=== PATIENT | female | born 1990 | race Caucasian/White ===

== ENCOUNTER 2022-03-20 05:20 | Inpatient (IN) ==
--- NOTE | 2022-03-16 10:40 | Anesthesiology Consultation ---
Date of Service March 16, 2022 Assessment & Plan Chart Review Chart Review: Acceptable Risk for Surgery and Patient NOT seen in Pre Admission Testing History Surgery Operation Date: 03/20/22 07:30 Proposed Procedures p Section in LD (Delivery of Baby Throught Abdominal Incision) - Tsering Matt MD, FACOG s Bilateral Tubal Ligation Labor & Deliv - Tsering Matt MD, FACOG Height/Weight Height: 5 ft 5 in Weight: 108.862 kg Allergies Allergy/AdvReac Type Severity Reaction Status Date / Time No Known Allergies Allergy Verified 03/16/22 09:55 Medications Home Medications Medication Instructions Recorded Confirmed Last Taken sertraline 50 mg tablet 50 mg PO QAM 10/08/21 03/16/22 02/02/22 08:00 acetone (urine) test (Ketone Urine #50 ea 11/06/21 03/16/22 Unknown Test strips) blood sugar diagnostic (OneTouch #150 ea 11/06/21 03/16/22 Unknown Verio test strips) blood-glucose meter (OneTouch #1 ea 11/06/21 03/16/22 Unknown Verio Flex Meter) lancets 33 gauge (OneTouch Delica #150 ea 11/06/21 03/16/22 Unknown Lancets) cetirizine 10 mg tablet (Zyrtec) 10 mg PO QAM 02/03/22 03/16/22 02/02/22 08:00 prenat.vits,rossana,avb-jayp-qswpx 1 tab PO QAM 02/03/22 03/16/22 02/02/22 08:00 albuterol 90 mcg/actuation aerosol 2 mcg inhalation UD PRN Wheezing 03/16/22 03/16/22 Unknown inhaler azithromycin 250 mg tablet 250 mg PO UD 03/16/22 03/16/22 Unknown (Zithromax Z-Davon) budesonide-formoterol HFA 160 2 puff inhalation QAM 03/16/22 03/16/22 Unknown mcg-4.5 mcg/actuation aerosol inhaler (Symbicort) famotidine 20 mg tablet (Pepcid) 20 mg PO QAM 03/16/22 03/16/22 Unknown prednisone 20 mg tablet 20 mg PO QAM 03/16/22 03/16/22 Unknown Past Medical History Medical History ADHD Anxiety Asthma Bronchitis currently being treated, dx 03/14/22 at [facility] in [place]; currently taking a z-pack and is on prednisone. rapid covid test was negative. Depression GERD (gastroesophageal reflux disease) History of COVID-19 2020, pcr test, not hosp; headache, dry cough, "a little" sob>resolved. Past Family History Family History Grandmother (Maternal) Cervical cancer Denies family history of Ovarian cancer Breast cancer Colorectal cancer Past Surgical History Surgical History History of esophagogastroduodenoscopy (EGD) S/P section x 3 S/P cholecystectomy S/P tonsillectomy and adenoidectomy Social History Smoking Status: Former smoker tobacco type: cigarettes Do You Dip or Chew Tobacco: No Smoking End Date: 2013 Hx Alcohol Use: No Hx Substance Use: No substance use type: does not use
--- NOTE | 2022-03-16 20:12 | History & Physical Report ---
Date of Service March 16, 2022 Assessment & Plan (1) Previous delivery affecting , antepartum: Plan: IUP aat 39 weeks with prior C/S X 3 presents for repeat C/S and bilateral salpingectomy. the procedures and their risks were reviewed with the patient and all questions were answered to her satisfaction. History of Present Illness Primary Care Provider: Adrianne Grey DO patient is a 31 yo female EDC 03/24/22 who presents at 39 weeks for repeat LTCS. her first section was done for NRFHR pattern. she then has had 2 repeat C/S. last C/S complicated by return to the OR for bleeding in the subcutaneous layer. She was diagnosed with GDM - diet control with her second . growth scans this have been AGA. GBS negative. she is also requesting permanent sterilization with this section because of unwanted fertility and multiparity. Allergies Allergy/AdvReac Type Severity Reaction Status Date / Time No Known Allergies Allergy Verified 03/16/22 09:55 Home Medications Medication Instructions Recorded Confirmed Type sertraline 50 mg tablet 50 mg PO QAM 10/08/21 03/16/22 History acetone (urine) test (Ketone Urine #50 ea 11/06/21 03/16/22 Rx Test strips) blood sugar diagnostic (OneTouch #150 ea 11/06/21 03/16/22 Rx Verio test strips) blood-glucose meter (OneTouch #1 ea 11/06/21 03/16/22 Rx Verio Flex Meter) lancets 33 gauge (OneTouch Delica #150 ea 11/06/21 03/16/22 Rx Lancets) cetirizine 10 mg tablet (Zyrtec) 10 mg PO QAM 02/03/22 03/16/22 History prenat.vits,rossana,[id number]-dvlml 1 tab PO QAM 02/03/22 03/16/22 History albuterol 90 mcg/actuation aerosol 2 mcg inhalation UD PRN Wheezing 03/16/22 03/16/22 History inhaler azithromycin 250 mg tablet 250 mg PO UD 03/16/22 03/16/22 History (Zithromax Z-Davon) budesonide-formoterol HFA 160 2 puff inhalation QAM 03/16/22 03/16/22 History mcg-4.5 mcg/actuation aerosol inhaler (Symbicort) famotidine 20 mg tablet (Pepcid) 20 mg PO QAM 03/16/22 03/16/22 History prednisone 20 mg tablet 20 mg PO QAM 03/16/22 03/16/22 History Patient History Medical History ADHD Anxiety Asthma Bronchitis currently being treated, dx 03/14/22 at [facility] in [place]; currently taking a z-pack and is on prednisone. rapid covid test was negative. Depression GERD (gastroesophageal reflux disease) History of COVID-19 2020, pcr test, not hosp; headache, dry cough, "a little" sob>resolved. Surgical History History of esophagogastroduodenoscopy (EGD) S/P section x 3 S/P cholecystectomy S/P tonsillectomy and adenoidectomy Family History Grandmother (Maternal) Cervical cancer Denies family history of Ovarian cancer Breast cancer Colorectal cancer Social History Smoking Status: Former smoker Second Hand Exposure: No; Hx Alcohol Use: No Hx Substance Use: No Preferred Language: Jordanian Communication Ability: Effective Trackwalker Required: No Beliefs That Will Affect Care: None marital status: marital status details: jeannie Carrizales (39) [phone] Current Living Situation: Spouse and Family Current Living Situation Comment: lives with jeannie, 3 children, dog current occupational status: employed current occupation: [employer] rep Feels Safe at Home: Yes Assistive Devices: Contacts and Glasses Review of Systems All systems reviewed & are unremarkable except as noted in HPI & below Physical Exam Constitutional: WD/WN, vitals as above Respiratory: normal respiratory effort, lungs clear to auscultation Cardiovascular: RRR, no murmur, no edema Psychiatric: A+Ox3, euthymic affect Genitourinary: OB Exam Abdomen: + fundal height (term), + vertex and + estimated weight (8-9 pounds) OB Exam Monitor Tracing: + external FHT monitor used, + external uterine monitor used, + category I and + normal FHT variability Coding Level of Care Code None Diagnoses Previous delivery affecting , antepartum O34.219
[2022-03-20] MEDS ORDERED: CITRIC ACID/SODIUM CITRATE 15 ML UDC PO SCH (06:00)
[2022-03-20] MEDS ORDERED: LACTATED RINGER'S 1,000 ML IV SCH ×2 (06:00→09:45)
[2022-03-20] MEDS ORDERED: ceFAZolin 3,000 MG in DEXTROSE 5% 50 ML IV SCH (06:00)
[2022-03-20 06:24] LABS: Basophils # (auto) 0.03 K/uL (0-0.2); Basophils % (auto) 0.3 %; Eosinophils # (auto) 0.11 K/uL (0-0.50); Eosinophils % (auto) 0.9 %; Hematocrit (blood only) 33.5 % (34.1-44.9); Hemoglobin 11.5 g/dl (12.0-16.0); Immature Granulocytes # (auto) 0.15 K/uL (0.00-0.02); Immature Granulocytes % (auto) 1.3 %; Lymphocytes # (auto) 1.88 K/uL (1.2-3.4); Lymphocytes % (auto) 15.9 %; Mean Corpuscular Hemoglobin 30.8 pg (25.0-34.0); Mean Corpuscular Hgb Conc 34.3 g/dL (32.0-36.0); Mean Corpuscular Volume 89.8 fL (80.0-100.0); Mean Platelet Volume 10.1 fL (9.4-12.3); Monocytes # (auto) 0.55 K/uL (0.24-0.82); Monocytes % (auto) 4.7 %; Neutrophils # (auto) 9.08 K/uL (1.4-6.5); Neutrophils % (auto) 76.9 %; Platelet Count 213 K/uL (130-400); RDW Coefficient of Variation 13.1 % (11.5-14.5); RDW Standard Deviation 42.9 fL (36.4-46.3); Red Blood Count 3.73 M/uL (3.93-5.22)
[2022-03-20] MEDS ORDERED: SODIUM CHLORIDE 0.9% 250 ML IV PRN (06:33)
[2022-03-20 07:01] LABS: Appearance Urine Clear (Clear); Bilirubin Urine Negative (Negative); Blood Urine Negative (Negative); Color Urine Yellow; Glucose Urine UA Negative (Negative); Ketones Urine Trace (Negative); Leukocyte Esterase Urine Negative (Negative); Nitrite Urine Negative (Negative); Protein Urine Negative (Negative); Specific Gravity Urine 1.025 (1.000-1.030); Urobilinogen Urine Negative (Negative); pH Urine 6.5 (4.5-7.5)
[2022-03-20] MEDS ORDERED: KETOROLAC 30 MG/ML VIAL IV PRN ×2 (07:27→09:39)
[2022-03-20] MEDS ORDERED: LACTATED RINGER'S 500 ML IV PRN (07:27)
[2022-03-20] MEDS ORDERED: MoRPHine SULFATE PF 1 MG/ML 10 ML AMP/VIAL INT SPINAL ONE (07:27)
[2022-03-20] MEDS ORDERED: ONDANSETRON INJ 2 MG/ML 2 ML VIAL IV PRN (07:27)
[2022-03-20] MEDS ORDERED: NALBUPHINE HCL INJ 10 MG/ML AMP IV PRN (07:27)
[2022-03-20] MEDS ORDERED: NALOXONE HCL 0.4 MG/1 ML VIAL/CARP IV PRN (07:27)
[2022-03-20] MEDS ORDERED: diphenhydrAMINE 50 MG/ML VIAL IV PRN (07:27)
[2022-03-20] MEDS ORDERED: NALOXONE HCL 0.08 MG in SYRINGE 1.8 ML IV PRN (07:27)
[2022-03-20] MEDS ORDERED: ePHEDrine sulfate 50 MG/ML AMP IV PRN (07:27)
[2022-03-20] MEDS ORDERED: NALOXONE HCL 1 MG in SODIUM CHLORIDE 0.9% 1000ML 1,000 ML IV PRN (07:27)
[2022-03-20] MEDS ORDERED: HYDROmorphone INJ 0.5 MG/0.5 ML SYR IV PRN (07:27)
[2022-03-20] MEDS ORDERED: DC INTRASPINAL MORPHINE SCH (07:30)
[2022-03-20] MEDS ORDERED: SODIUM CHLORIDE 0.9% 1000ML 1,000 ML IV SCH (07:30)
[2022-03-20] MEDS ORDERED: NO NARCOTICS OR SEDATIVES SCH (07:30)
--- NOTE | 2022-03-20 07:30 | History & Physical Bridge Note ---
Date of Service March 20, 2022 History & Physical Bridge Note I have examined the patient, reviewed the History & Physical and in the interval since the performance of the History & Physical I have noted the following changes of clinical significance: no changes noted
[2022-03-20] MEDS ORDERED: fentaNYL citrate 100 MCG/2 ML VIAL ONE (07:32)
[2022-03-20] MEDS ORDERED: MoRPHine SULFATE PF 1 MG/ML 10 ML AMP/VIAL ONE (07:33)
[2022-03-20] MEDS ORDERED: PHENYLEPHRINE 100MCG/ML 5ML SYR ONE (08:02)
[2022-03-20] MEDS ORDERED: ONDANSETRON INJ 2 MG/ML 2 ML VIAL ONE (08:02)
[2022-03-20] MEDS ORDERED: OXYTOCIN 10 UNITS/ML 10ML VIAL ONE (08:03)
--- NOTE | 2022-03-20 09:35 | Post Operative Brief Note ---
PG Immediate Post Op with CF Date of Surgery March 20, 2022 Pre & Post Diagnosis Operation Date: 03/20/22 07:30 Pre-Op Diagnosis: Histroy of Section, Request for Sterilzat Post-Op Diagnosis: Same; Delivery of a live male child at 0819 I identified the patient and participated in the time-out.: Yes Procedure Operation Date: 03/20/22 07:30 Actual Procedures p Section - Tsering Matt MD, FACOG s Bilateral Salpingectomy - Tsering Matt MD, FACOG Surgeon Tsering Matt MD, FACOG Clinical Informatics Director Gabi Gallardo MD and Kacie Brewster MS1 Estimated Blood Loss 600 Findings Consistent with Post-Op Diagnosis gravid uterus , normal fallopian tubes and ovaries, dense band of adhesion from left anterior fundus to side wall which did not impede the surgery and there for not lysed. Specimens Specimen Description: A. Placenta-hold B. Cord Blood C. portions of right and left fallopin tubes Drains Arevalo Catheter Anesthesia Type Spinal Complications none Disposition Accompanied Patient To Recovery: Yes
[2022-03-20] MEDS ORDERED: DIPHTHERIA/TETANUS/PERTUSSIS 0.5 ML SYR/VIAL IM ONE (09:39)
[2022-03-20] MEDS ORDERED: HYDROCORTISONE ACETATE 25 MG SUPP PR PRN (09:39)
[2022-03-20] MEDS ORDERED: MAGNESIUM HYDROXIDE SUSP 30 ML UDC PO PRN (09:39)
[2022-03-20] MEDS ORDERED: BENZOCAINE 20% AER SPR 82.5 GM CAN EXT PRN (09:39)
[2022-03-20] MEDS ORDERED: SENNA 8.6 MG TAB PO PRN (09:39)
[2022-03-20] MEDS ORDERED: ALBUTEROL HFA 8 GM INHALER INH PRN (10:40)
--- NOTE | 2022-03-20 11:24 | Operative Report ---
PG Post Operative Report Pre & Post Diagnosis Operation Date: 03/20/22 07:30 Pre-Op Diagnosis: Histroy of Section, Request for Sterilzat Post-Op Diagnosis: Same; Delivery of a live male child at 0819 I identified the patient and participated in the time-out.: Yes Procedure Operation Date: 03/20/22 07:30 Actual Procedures p Section - Tsering Matt MD, FACOG s Bilateral Tubal Ligation - Tsering Matt MD, FACOG Surgeon Tsering Matt MD, FACOG Feature Writer Gabi Gallardo MD and Kacie Brewster MS1 Estimated Blood Loss 600 Findings Consistent with Post-Op Diagnosis Specimens placenta to hold Drains Arevalo to straight drainage- clear urine at end of the case Anesthesia Type Spinal Complications none Disposition Accompanied Patient To Recovery: Yes Indications Patient is a 31-year-old 4 para 3-0-0-3 female who presents at 39 weeks for repeat section. has been complicated by gestational diabetes which has been diet-controlled. First section was done because of failure to progress. She then had to repeat sections. Her last section was complicated by postoperative bleeding in the subcutaneous area that required return to the OR for hemostasis. She is requesting permanent sterilization for unwanted fertility. Who performed a salpingectomy bilaterally. She understands the risks of the procedures both section and salpingectomy and she is willing to proceed after all her questions have been answered. Description of Procedure After the patient received adequate subarachnoid block she was prepped and draped in usual sterile fashion. After timeout was done, a transverse incision was made in the skin through the prior scar. The incision was continued to the fascia with the same scalpel. The fascia incision was then extended transversely with Medina scissors. The edges were then grasped with Christos clamps and the underlying rectus muscles bluntly sharply dissected off of the overlying fascia. The peritoneum was entered bluntly and the rectus muscles were divided inferiorly with a scalpel and blunt dissection. At this point the bladder blade was able to be placed in the abdomen. The lower uterine segment was noted be quite thin. The bladder was then taken down off the anterior surface of the uterus and placed behind the bladder blade. The uterus was then entered with a scalpel and extended into cephalad and caudad blunt fashion. Membranes were ruptured for clear fluid. This was delivered from the vertex presentation with moderate fundal pressure. The infant was vigorous and crying and moving all 4 limbs. He was a male infant. After the cord was clamped and cut the infant was handed off the field to Dr. Tawanda Simmons who was in attendance as automobile rental representative. After cord blood was obtained the placenta was expressed intact with a three-vessel cord. The uterus was then exteriorized and covered with a clean lap sponge the uterine cavity was explored found be free of any retained placenta or membranes. The uterus was then closed in 2 layers in a running locking imbricating fashion with Monocryl suture. Hemostasis noted to be excellent. Attention was then turned to the tubal salpingectomy. The fimbriated end of the right tube was grasped with a Jessee clamp. The LigaSure device was then used to divide the mesosalpinx to the level of the insertion of the tube on the uterus. The fallopian tube was then transected at this insertion. And handed off the field. The left fallopian tube was then identified and the Raleigh clamp was used to grasp at the insertion of the tube into the uterus. LigaSure device was then used to divide the mesosalpinx to the fimbriated end of the tube. The tube was then handed off the field as well. Hemostasis was noted to be excellent at both salpingectomy sites. The posterior cul-de-sac was noted to be free of any excessive fluid or blood. The uterus was then placed back inside the abdominal cavity gently. The salpingectomy sites were reexamined however difficult because of the adhesion on the left side of the uterine wall. However there was no active bleeding present. The uterus vision was then examined once more and found to have continued excellent hemostasis. The rectus muscle were brought together on the midline with individual stitches of 0 Monocryl. The fascia was closed in a running fashion with 0 Vicryl. After irrigating the adipose layer, and making sure there was no active bleeding present, the skin edges were reapproximated doing a subcuticular stitch of 4-0 Vicryl. Urine was clear at the end of the case. Mother and were in stable condition upon arrival in labor and delivery for postoperative care. I attest to the content of the Intraoperative Record and any orders documented therein. Any exceptions are noted below. OB Procedure Charges [id number] Add on Tubal for C/S
--- NOTE | 2022-03-20 12:12 | Anesthesiology Progress Note ---
Date of Service March 20, 2022 Anesthesia Post Procedure Vital Signs Vital Signs: Temp Pulse Resp BP Pulse Ox 03/20/22 10:50 18 03/20/22 10:21 18 03/20/22 10:20 18 03/20/22 10:10 18 03/20/22 10:00 18 03/20/22 09:50 18 03/20/22 09:40 18 03/20/22 09:30 18 03/20/22 09:20 36.5 C 18 03/20/22 05:44 36.9 C 18 03/20/22 11:27 65 95 03/20/22 11:26 65 94 03/20/22 11:24 67 133/65 03/20/22 11:22 66 94 03/20/22 11:20 76 94 03/20/22 11:17 78 95 03/20/22 11:15 65 91 03/20/22 11:12 73 95 03/20/22 11:09 68 94 03/20/22 11:07 67 96 03/20/22 11:02 83 90 03/20/22 10:57 66 97 03/20/22 10:54 63 132/69 03/20/22 10:52 73 95 03/20/22 10:47 62 96 03/20/22 10:42 64 96 03/20/22 10:37 71 96 03/20/22 10:32 64 97 03/20/22 10:27 63 97 03/20/22 10:23 65 128/61 03/20/22 10:22 65 97 03/20/22 10:17 65 97 03/20/22 10:13 62 158/68 H 03/20/22 10:12 63 98 03/20/22 10:07 59 L 97 03/20/22 10:04 67 114/66 03/20/22 10:02 68 97 03/20/22 09:57 65 97 03/20/22 09:52 61 121/60 98 03/20/22 09:47 66 98 03/20/22 09:42 63 03/20/22 09:42 64 129/56 L 98 03/20/22 09:37 94 03/20/22 09:37 69 03/20/22 09:37 69 99 03/20/22 09:32 67 11/18/22 09:32 64 127/58 L 98 03/20/22 09:27 66 97 03/20/22 09:22 68 128/60 98 03/20/22 09:19 65 114/55 L 03/20/22 07:46 80 98 03/20/22 07:41 69 97 03/20/22 07:36 73 97 03/20/22 07:30 73 98 03/20/22 07:26 80 99 03/20/22 05:46 69 139/79 Transfer of Care Handoff Completed per policy Notes Mental Status: alert / awake / arousable Patient Amnestic to Procedure: Yes Nausea / Vomiting: adequately controlled Pain: adequately controlled Airway Patency, RR, SpO2: stable & adequate BP & HR: stable & adequate Hydration State: stable & adequate Neuraxial Anesthesia: was administered and sensory block is resolving Anesthetic Complications: no major complications apparent and Pt Satisfied with anesthetic care
[2022-03-20] MEDS: OXYTOCIN 20 UNITS in LACTATED RINGER'S 1,000 ML IV SCH ×2 (12:27→20:38)
[2022-03-20] MEDS: SIMETHICONE 80 MG CHEW PO SCH ×3 (13:15→20:39)
[2022-03-20] MEDS: DOCUSATE SODIUM 100 MG CAP PO SCH (21:03)
[2022-03-21] MEDS ORDERED: diphenhydrAMINE 50 MG/ML VIAL IV PRN (01:27)
[2022-03-21] MEDS ORDERED: PROMETHAZINE HCL 25 MG in SODIUM CHLORIDE 0.9% 50 ML IV PRN (01:27)
[2022-03-21] MEDS ORDERED: MEPERIDINE HCL 50 MG/ML CARP IV PRN (01:27)
[2022-03-21] MEDS ORDERED: diphenhydrAMINE Capsule 25 MG CAP PO PRN (01:27)
[2022-03-21] MEDS ORDERED: ONDANSETRON INJ 2 MG/ML 2 ML VIAL IV PRN (01:27)
[2022-03-21 06:37] LABS: Basophils # (auto) 0.02 K/uL (0-0.2); Basophils % (auto) 0.2 %; Eosinophils # (auto) 0.22 K/uL (0-0.50); Eosinophils % (auto) 2.3 %; Hematocrit (blood only) 30.8 % (34.1-44.9); Hemoglobin 10.7 g/dl (12.0-16.0); Immature Granulocytes # (auto) 0.07 K/uL (0.00-0.02); Immature Granulocytes % (auto) 0.7 %; Lymphocytes # (auto) 2.12 K/uL (1.2-3.4); Lymphocytes % (auto) 22.6 %; Mean Corpuscular Hgb Conc 34.7 g/dL (32.0-36.0); Mean Corpuscular Volume 89.3 fL (80.0-100.0); Mean Platelet Volume 9.7 fL (9.4-12.3); Monocytes # (auto) 0.67 K/uL (0.24-0.82); Monocytes % (auto) 7.1 %; Neutrophils % (auto) 67.1 %; Platelet Count 185 K/uL (130-400); RDW Standard Deviation 42.3 fL (36.4-46.3); Red Blood Count 3.45 M/uL (3.93-5.22)
--- NOTE | 2022-03-21 07:31 | Obstetrical Progress Note ---
Date of Service March 21, 2022 Assessment & Plan (1) state: 31 yo POD 1 from rLTCS/BTL, doing well -Meeting all pp milestones -A-/rubella equiv/formula feeding. needs PP MMR -f/u 6 weeks for appt, continue routine pp care Subjective Ambulation: ambulating normally Voiding: no voiding problems Passing Gas:: Yes Diet Tolerance:: regular diet Lochia:: Small Feeding Type:: breast feeding Pain well managed with medication Review of Systems Denies fevers, chills, n/v, PAGAN, CP, SOB Physical Exam Constitutional WD/WN, vitals as above no acute distress Respiratory normal respiratory effort, lungs clear to auscultation Cardiovascular RRR, no murmur, no edema Gastrointestinal (Abdomen) Inspection/Auscultation: + abdominal surgical incision (dressing c/d/i) Percussion/Palpation: abdomen soft; abdomen nontender fundus firm at umbilicus and NT Musculoskeletal BLE symmetric, nonerythematous, nontender Results & Data ([facility]) Vital Signs (Past 12 Hours) Vital Signs Temp Pulse Resp BP Pulse Ox O2 Del Method 03/21/22 03:20 97.7 F 70 18 122/65 97 Room Air 03/21/22 01:00 16 96 03/21/22 00:00 18 97 03/20/22 23:00 16 98 03/20/22 22:00 15 96 03/20/22 20:00 16 99 03/20/22 21:00 17 97 03/20/22 21:00 Room Air 03/20/22 21:00 97.7 F 71 17 131/73 97 Room Air 03/20/22 23:20 97.7 F 68 18 131/84 97 Room Air
[2022-03-21] MEDS: FERROUS SULFATE 325 MG TAB PO SCH (08:36)
[2022-03-21] MEDS: SIMETHICONE 80 MG CHEW PO SCH ×4 (08:36→19:28)
[2022-03-21] MEDS: DOCUSATE SODIUM 100 MG CAP PO SCH ×2 (08:36→19:28)
[2022-03-21] MEDS: PRENATAL VITAMIN 1 TAB PO SCH (08:36)
[2022-03-21] MEDS: SERTRALINE HCL 50 MG TABLET PO SCH (08:37)
[2022-03-21] MEDS: CETIRIZINE HCL 10 MG TABLET PO SCH (08:37)
[2022-03-21] MEDS: oxyCODONE/ACETAMINOPHEN 5mg/325mg TAB PO PRN ×3 (08:37→21:13)
[2022-03-21] MEDS: predniSONE 20 MG TAB PO SCH (08:37)
[2022-03-21] MEDS: FLUTICASONE/VILANTEROL 200/25MCG 14 PUFFS/INHALER INH SCH (08:38)
[2022-03-21] MEDS: IBUPROFEN 600 MG TAB PO PRN ×4 (08:38→21:14)
[2022-03-21] MEDS ORDERED: bisacodyL 5 MG TABEC PO SCH (20:00)
[2022-03-22] MEDS: oxyCODONE/ACETAMINOPHEN 5mg/325mg TAB PO PRN ×4 (02:02→12:31)
[2022-03-22] MEDS: IBUPROFEN 600 MG TAB PO PRN ×3 (02:03→12:27)
[2022-03-22 06:47] LABS: Hematocrit (blood only) 29.6 % (34.1-44.9); Hemoglobin 10.1 g/dl (12.0-16.0)
--- NOTE | 2022-03-22 07:25 | Obstetrical Progress Note ---
Date of Service March 22, 2022 Assessment & Plan (1) state: satisfactory post-op and progress wishes to be discharged today scripts sent to pharmacy follow up in 6 weeks Subjective Ambulation: ambulating normally Voiding: no voiding problems Passing Gas:: Yes Diet Tolerance:: regular diet Lochia:: Small Feeding Type:: breast feeding pain well controlled with oral pain meds Review of Systems All systems reviewed & are unremarkable except as noted in HPI & below Physical Exam Constitutional WD/WN, vitals as above Gastrointestinal (Abdomen) incision dry and intact- no erythema or induration Psychiatric A+Ox3, euthymic affect Genitourinary OB Exam Abdomen: + fundal height Fundus: + firm and + relation to umbilicus (1 below) Results & Data ([facility]) Vital Signs (Past 12 Hours) Vital Signs Temp Pulse Resp BP Pulse Ox O2 Del Method 03/21/22 23:18 97.9 F 65 18 127/69 95 Room Air 03/21/22 19:25 98.1 F 67 16 137/81 92 Room Air
[2022-03-22] MEDS: FERROUS SULFATE 325 MG TAB PO SCH (08:12)
[2022-03-22] MEDS: SERTRALINE HCL 50 MG TABLET PO SCH (08:12)
[2022-03-22] MEDS: CETIRIZINE HCL 10 MG TABLET PO SCH (08:12)
[2022-03-22] MEDS: SIMETHICONE 80 MG CHEW PO SCH ×2 (08:13→12:27)
[2022-03-22] MEDS: DOCUSATE SODIUM 100 MG CAP PO SCH (08:13)
[2022-03-22] MEDS: FLUTICASONE/VILANTEROL 200/25MCG 14 PUFFS/INHALER INH SCH (08:13)
[2022-03-22] MEDS: predniSONE 20 MG TAB PO SCH (08:13)
[2022-03-22] MEDS: PRENATAL VITAMIN 1 TAB PO SCH (08:13)
[2022-03-22] MEDS ORDERED: bisacodyL 10 MG SUPP PR PRN (09:39)
--- NOTE | 2022-03-23 01:12 | Discharge Summary (DS) ---
DATE OF ADMISSION: 03/20/2022. DATE OF DISCHARGE: 03/22/2022. PRINCIPAL DIAGNOSES: Intrauterine at term, 39 weeks, prior section x3, unwanted f ertility, desire for sterilization. PRINCIPAL PROCEDURES: Repeat low transverse section and bilateral salpingectomies. HISTORY: The patient is a 31-year-old 4, para 3-0-0-3, female who presented at 39+ weeks for repeat section. The had been complicated by gestational diabetes, but it was t controlled. She underwent a repeat section without any complications. She also went thro [facility] a bilateral salpingectomy for unwanted fertility. She had an uncomplicated postoperative course. She was voiding, ambulating and eating regular diet on her first postop day. She has remained afeb rile throughout her hospital stay. Pain was well controlled with oral pain medication. Hemoglobin o n admission was 11.5, hematocrit 33.5. First postop day hemoglobin 10.7, hematocrit of 30.8. Second postop day 10.1, hematocrit of 29.6. She was sent home in good condition with prescriptions for bot h Motrin 600 mg p.o. q.6 hours p.r.n. pain and Percocet 1 tablet p.o. q.6 hours p.r.n. pain. She is to call for temperature of 101 degrees or higher, heavy vaginal bleeding, burning with urination, inc reased redness, drainage or pain in her incision, calf tenderness or any other concerns. Job ID: [id number]
== END 2022-03-22 13:47 | disposition home or self-care (01) | DRG 785 ==
LOC: 4S1 05:20 → EDSTATUS 07:30 → 4E2 12:14
PROC: M.PPTLD (2022-03-20 07:30)
DX: Z30.2 Encounter for sterilization; Z37.0 Single live birth; O99.52 Diseases of the respiratory system complicating childbirth; Z3A.39 39 weeks gestation of pregnancy; J40 Bronchitis, not specified as acute or chronic; O34.211 Maternal care for low transverse scar from previous cesarean delivery; Z87.891 Personal history of nicotine dependence; O24.410 Gestational diabetes mellitus in pregnancy, diet controlled; Z86.16 Personal history of COVID-19